=== PATIENT | female | born 1960 | race Caucasian/White ===

== ENCOUNTER 2022-03-03 14:57 | Emergency (ER) | payer BC, MEDICAID, OTHER | END 2022-03-03 17:20 | disposition home or self-care (01) | LOC: JP.ED 14:57 | DX: J02.9 Acute pharyngitis, unspecified (principal); H10.31 Unspecified acute conjunctivitis, right eye; I10 Essential (primary) hypertension; Z79.899 Other long term (current) drug therapy; Z20.822 Contact with and (suspected) exposure to COVID-19 | CPT/HCPCS: 99283; U0002 ==